=== PATIENT | female | born 1955 | race Caucasian/White ===

== ENCOUNTER → 2017-12-23 01:00 | Outpatient (CLI) | payer OTHER, SELFPAY ==
--- NOTE | 2017-12-23 12:27 | DI.REPORT_ITS ---
SYMPTOMS/DIAGNOSIS: SCREENING, Z12.31 MAMMOGRAM: Mammograms were interpreted according to the usual protocol including computer analysis with CAD system, tomosynthesis and C view imaging. The breasts are of moderate density with fairly symmetrical distribution of fibroglandular tissue. No dominant mass or clumped microcalcification is identified in either breast. Current examination is compared with the previous examinations including July 2015 and there has been no gross interval change in appearance in comparison with the previous studies. CONCLUSION: No specific evidence of malignancy at this time. Routine screening examinations are suggested at yearly intervals due to the family history of breast carcinoma. Category 1, breast density category B. MQSA ASSESSMENT OF FINDINGS: Negative. Category 1. Patient will receive a letter notifying them of these results. BI-RADS category B. There are scattered areas of fibroglandular density.
== END ==
PROVIDERS: PCP Family Medicine; Visit Provider Family Medicine
DX: Z12.31 Encounter for screening mammogram for malignant neoplasm of breast (principal); Z80.3 Family history of malignant neoplasm of breast
CPT/HCPCS: 77063; 77067

== ENCOUNTER 2019-01-12 17:43 | Outpatient (REF) | payer OTHER, SELFPAY ==
--- NOTE | 2019-01-12 11:00 | PAPFT_PTH ---
PATIENT: Susana Parnell LOC: [facility] U#:[id number] AGE/SX: 63/F ROOM: RE01/12/[address]: Melissa Benites MD, DC : 1955 BED: DIS: 01/12/2019 SPEC #: [id number] RECD: 01/13/19 13:06 STATUS: STAN REDario #: [id number] BRYAN: 01/12/19 11:[address]: Melissa Benites DEPT: [facility] Cytology RECD BY: Norma Hicks Tissues: 1 - CX/ENDOCX FOR PAP SMEARS Procedures: PAP THIN PREP/UVM Screening HPV DNA PROBE Comments: [id number]
== END 2019-01-12 18:03 ==
LOC: LBN 17:43
PROVIDERS: PCP Family Medicine; Visit Provider Family Medicine
DX: Z12.4 Encounter for screening for malignant neoplasm of cervix (principal); Z11.51 Encounter for screening for human papillomavirus (HPV)
CPT/HCPCS: 88142; 87624

== ENCOUNTER 2019-02-03 01:22 | Outpatient (CLI) | payer OTHER, SELFPAY ==
--- NOTE | 2019-02-03 12:52 | DI.MAMMO_ITS ---
EXAM: MG MAMMO SCREENING CLINICAL HISTORY: screening, Z12.39. TECHNIQUE: Mammograms were interpreted according to the usual protocol including computer analysis w [employer] system, tomosynthesis and C-view imaging. COMPARISON: December 2017 FINDINGS: The breasts are of moderate density with fairly symmetrical distribution of fibroglandular tissue. N o dominant mass or clumped microcalcification is identified in either breast. Current examination is compared with previous examinations including December 2017 and there has been no gross interval suarez e in appearance in comparison with the previous studies. IMPRESSION: No specific evidence of malignancy at this time. Routine screening examinations suggested at yearly i ntervals due to the family history of breast carcinoma category 1, breast density category B. BI-RADS Cat 1 - Negative Breast Density - Category B - Scattered areas of fibroglandular density
== END 2019-02-03 01:42 ==
PROVIDERS: PCP Family Medicine; Visit Provider Family Medicine
DX: Z12.31 Encounter for screening mammogram for malignant neoplasm of breast (principal); Z80.3 Family history of malignant neoplasm of breast
CPT/HCPCS: 77063; 77067

== ENCOUNTER 2019-03-16 06:19 | Day surgery (SDC) | payer OTHER, SELFPAY ==
[2019-03-16 06:33] VITALS: BP 129/80; PULSE 80; RESP 17; TEMP 36.2; O2SAT 99
[2019-03-16] MEDS: Lactated Ringers 1,000 ML 80 ML IV (07:06)
--- NOTE | 2019-03-16 07:24 | W.PM.HP.N ---
Date of service: 03/16/19 Time of Service: 07:24 Assessment and Plan Assessment and plan (1) Colon cancer screening: Status: Acute Assessment and plan: Informed consent is obtained for the procedural (explained in simple layman's terms that the pt and/or family could understand) explaining risks vs benefits and alternatives to the procedure and consequences if we do not do the procedure and need/rational for the procedure. Risks include but are not limited to:bleeding, infection, perforation of esophagus, stomach, colon, small intestines, bronchus or trachea, or PTX. This would necessitate emergency surgery to repair the damage w/ possible ostomy; and other associated complications w/ the required surgery. Also complications of anesthesia including aspiration,AR/CVA/. History of Present Illness Consults Consult date: 03/16/19 Narrative: pt here is for CRC screening. last ce was 2007 and show divertic. P GMa had crc. no problems w/ bowels- wt loss/changes/bleeding/pain. Review of Systems All systems reviewed & are unremarkable except as noted in HPI and below PFSH Surgical History GANGLION CYST REMOVAL (07/18/14) DR. HOLBROOK Hx of colonoscopy (Chronic) Ligation of fallopian tube OVARIAN SURGERY (~2007) 2007 paratubal cyst R ovary with serous cystadenoma L BSO Tonsillectomy (~1978) Family History Mother Essential hypertension Heart disease Hyperlipidemia Breast cancer Father Heart disease CAROTID AA; CABG Hyperlipidemia Prostate cancer Cancer of spine Hypertension Sister Diabetes Breast cancer Brother Hyperlipidemia Maternal Grandfather , age 71 Heart disease Stroke Paternal Grandfather , age 84 Heart disease Hyperlipidemia Stroke Maternal Grandmother , age 61 Colon cancer Paternal Grandmother , age 73 Stroke Brother Hyperlipidemia Son Hypertension Son Substance abuse Son Depression Substance abuse Social History Smoking/Tobacco Use Status: Never Alcohol Intake: current Alcohol Intake frequency: 0-2 drinks per day Alcohol type: wine Drug use: Never Substance use type: does not use Caregiver/Support person: No Household members: spouse Housing: house Communication Needs: None Do you need help understanding health information?: Never Pets and animals: Yes Pets and animals: dog(s) Sexually active: Yes Do you think of yourself as: straight/heterosexual Current gender identity: female What is your relationship status?: How often do you talk on the phone with friends or family?: three or more times per week How often do you get together with friends or relatives?: once per week How often do you attend religious or mandaen services?: decline to answer Do you belong to any clubs or organized social groups?: no Panel score (0-1 are the most socially isolated patients): 2 What type of physical activity do you participate in: walking Duration: 30-45 minutes/day Frequency: 3-4 times per week Gladis/Orthodox: Anglican Special gladis needs: No Seatbelt use: always Helmet use: Yes Helmet use: always Drive intox or ride w/intox straight truck driver: No Do you feel safe at home: Yes Do you feel safe in your relationship?: Yes Meds Home Medications and Allergies Home Medications Medication Instructions Recorded Confirmed Type ibuprofen [Motrin Ib] 2 tab PO DAILY PRN 09/01/12 03/16/19 History cholecalciferol (vitamin D3) 2,000 unit PO DAILY 03/31/17 03/16/19 History [Vitamin D3] estradiol 10 mcg vaginal tablet 10 mcg VG 2X/WEEK #24 tab-cap 01/12/19 03/16/19 Rx bimatoprost 0.01 % eye drops 1 drp OP DAILY 02/09/19 03/16/19 History timolol 0.25 % eye drops 1 drp OP DAILY 02/09/19 03/16/19 History Allergies Allergy/AdvReac Type Severity Reaction Status Date / Time Iodinated Contrast Media Allergy Intermediate Unverified 03/14/19 13:21 [Iodinated Contrast- Oral and IV Dye] Exam Const General: cooperative, healthy appearing, comfortable, no acute distress, well developed and well groomed Nutritional Appearance: average body habitus and well nourished Orientation: alert, awake and oriented x3 HENMT Head: normal to inspection, normocephalic and atraumatic Ears: hearing grossly normal bilaterally and external ears normal General nose exam: external nose normal Face and sinus: normal facial exam and sinuses nontender Mouth: oral mucosae normal, lip normal, tongue normal and moist mucous membranes Teeth and gingiva: dentition normal Eyes General: appearance normal, both eyes and all related structures Conjunctivae: conjunctivae normal Sclera: sclerae normal Pupils: PERRL Neck Neck: normal visual inspection and full ROM Chest Chest: normal inspection of the chest Resp Effort & Inspection: normal respiratory effort, able to speak in complete sentences, no cough, no nasal flaring, not tachypneic and no use of accessory muscles Auscultation: clear to auscultation bilaterally, no rales, no rhonchi and no wheezes Cardio Jugular venous pressure: no JVD Rate: regular rate Rhythm: regular rhythm GI Inspection: normal to inspection, no edema and non-distended Palpation: soft, no masses, nontender and No ascites Auscultation: normal bowel sounds Skin General skin exam: no rashes or lesions noted Trauma: no lacerations or abrasions Neuro General: alert, oriented x3, oriented, gait normal, moves all extremities, no focal motor deficits and CN's II-XI intact bilaterally Cognition: normal cognition Speech: speech normal Gait: normal gait Motor: muscle tone normal throughout Extrem General: normal to inspection, full ROM and no clubbing, cyanosis or edema Psych Appearance: grossly normal and well kempt Mental Status: mental status grossly normal Speech and Movement: speech and movement normal Affect: normal affect Results Last Vital Signs Temp 36.2 C L 03/16/19 06:33 Pulse 80 03/16/19 06:33 Resp 17 03/16/19 06:33 BP 129/80 03/16/19 06:33 Pulse Ox 99 03/16/19 06:33
--- NOTE | 2019-03-16 07:48 | BOWEL_PTH ---
PATIENT: Susana Parnell LOC: [facility] U#:[id number] AGE/SX: 63/F ROOM: RE03/16/[address]: Vida House : 1955 BED: DIS: 03/16/2019 SPEC #: [id number] RECD: 03/16/19 12:18 STATUS: STAN REQ #: [id number] BRYAN: 03/16/19 07:[address]: Vida House DEPT: Surgical Specimen RECD BY: Norma Hicks ENTERED: 03/16/19 12:19 SP TYPE: Bowel OTHR DR: Melissa Benites MD, DC Tissues: 1 - BIOPSY BOWEL Procedures: GROSS AND MICRO LEVEL 4 Comments: [id number]
--- NOTE | 2019-03-16 07:54 | W.COLOREPORT ---
Date of service: 03/16/19 Time of Service: 07:54 Colonoscopy Report Date of procedure: 03/16/19 Pre-op diagnosis general: 2nd degree relative w/ CRC Post-op diagnosis procedure note: other (x2 very small polyps at 20cm. beginnings of divertic) Procedure: CE Surgeon: Vida House Anesthesia proc note operative: GETA Estimated blood loss (mL): 1 Pathology: other Complications: None Disposition: same day Prep: Miralax/Dulcolax Retraction Time: 10 mins Procedure Description: After informed consent was obtained the patient was taken to the procedure room and placed in a left decubitous position. Monitors were applied and a time out was done. The patients name, date of , procedure, allergies to medications and metal in their body was reviewed. The patient was then sedated. Once sedated and comfortable a rectal exam was done. External exam was gradeII internal and external Internal exam revealed a normal sphincter tone and no palpable masses. The scope was then introduced and retrofelexed. Grade II internal hemorrhoids were identified. The scope was then advanced to the cecum w/out difficulty. The TI and appendiceal orifice were identified. The prep was good. The scope was then slowly retracted over 10 minutes back into the rectum. Polyps were removed at x2- very small at 20cc/sigmoid. all specimen was retrieved and no bleeding was noted. She has the very beginnings of diverticula noted. The scope was removed and the patient was woken up and taken back to Same day surgery in stable condition. The patient tolerated the procedure well and there were no immediate complications. Follow up: The patient should follow up in 10 years unless they develop changes in bowel habits or other new gastrointestinal complaints.
--- NOTE | 2019-03-16 07:57 | W.PM.DSUDISC ---
Discharge Plan Disposition Patient Disposition: HOME Condition: Good Discharge Details Reason For Visit: colon scope Attending Provider: Vida House Primary Care Provider: Melissa Benites Home Meds and New Rx's Prescriptions: Continued estradiol [Vagifem] 10 mcg tablet 10 mcg VG 2X/WEEK Qty: 24 RF: 4 timolol 0.25 % drops 1 drp OP DAILY RF: 0 Lumigan 0.01 % drops 1 drp OP DAILY RF: 0 ibuprofen [Motrin IB] 200 MG tablet 2 tab PO DAILY PRNRF: 0 cholecalciferol (vitamin D3) [Vitamin D3] 2,000 UNIT capsule 2,000 unit PO DAILY RF: 0 Discharge Instructions Instructions: Diverticulosis (GEN) Additional Instructions: Findings:minute divertic x2 very small polyps in rectal/sigmoid Follow up: will send a letter in 2-3 wks w/ results and when to repeat the scope (most likely in 10 yrs) Please call if you develop: fevers >101.5 Nausea or Vomiting Abdominal pain that is not transient DAY SURGERY UNIT POST COLONOSCOPY INSTRUCTIONS 1. Because there will be medication in your system for the next 24 hours, you may feel a little sleepy. Your coordination will be affected. Therefore: a. Do not drive or operate dangerous equipment for 24 hours. b. Do not drink alcohol beverages for 24 hours (not even beer). c. Plan to go home and rest for the day. 2. Generally there are no restrictions on your activity after a day or so has gone by, but you may feel a bit fatigued for a few days. 3 After you arrive home you may have a light meal and return to a normal diet as you can tolerate it without feeling sick to your stomach. 4. After surgery, you may feel pain or discomfort. This should be only transient, but if it persists please contact your doctor. 5. If there are any questions regarding the findings of your procedure, please feel free to contact your doctor. 6. If you are unable to contact your doctor with a problem, contact the hospital at [phone]. 7. Continue all your regular medications unless directed otherwise. I understand the above instructions and have no questions. Signature of Patient or Responsible Adult Escort Date/Time Name of Responsible Adult Escort Signature of Nurse Date/Time Discharge Orders Discharge Orders: Discharge Order (Routine); Ordered 03/16/19 Ordered By: Vida House DS: Diagnosis Discharge Diagnosis (1) Colon cancer screening: Status: Acute
[2019-03-16 08:32] VITALS: BP 114/71; PULSE 68; RESP 16; TEMP 36.3; O2SAT 99
== END 2019-03-16 08:55 | disposition home or self-care (01) ==
PROVIDERS: PCP Family Medicine; Visit Provider Surgery
PROC: 0DJD8ZZ Inspection of Lower Intestinal Tract, Via Natural or Artificial Opening Endoscopic (ICD-10-PCS; CPT 45378; principal; 2019-03-16 07:30)
DX: Z12.11 Encounter for screening for malignant neoplasm of colon (principal); Z80.0 Family history of malignant neoplasm of digestive organs; K63.5 Polyp of colon; K64.1 Second degree hemorrhoids; K57.30 Diverticulosis of large intestine without perforation or abscess without bleeding
CPT/HCPCS: 45380; 88305; NC; J2250; J3010

== ENCOUNTER 2020-05-02 11:02 | Outpatient (CLI) | payer OTHER, MEDICARE, SELFPAY ==
--- NOTE | 2020-05-02 09:00 | DI.RAD_ITS ---
EXAM: XR WRIST RT COMPLETE CLINICAL HISTORY: cyst vs calcium vs bone. TECHNIQUE: 2D digital imaging was performed. COMPARISON: No exams were available for comparison FINDINGS: BONES: No acute fracture is present. No bony destructive lesion is seen. There is a well corticated o sseous density at the tip of the ulnar styloid process which appears chronic. JOINTS: The carpal bones are normally aligned. Mild degenerative changes are seen at the 1st CMC join t with hypertrophic spurring present. SOFT TISSUE: Focal soft tissue swelling is seen medial to the ulnar styloid process. No soft tissue calcification is seen. The underlying bone is intact. IMPRESSION: Focal soft tissue swelling medial to the ulnar styloid process. No involvement of the underlying bon e or soft tissue calcification is noted. If clinically indicated, ultrasound or MRI may be considere d for further evaluation. DATA REPOSITORY: RADIATION DOSE DELIVERED:
== END 2020-05-02 11:22 ==
PROVIDERS: PCP Family Medicine; Visit Provider Physician Assistant Surgical
DX: M79.89 Other specified soft tissue disorders (principal); M18.11 Unilateral primary osteoarthritis of first carpometacarpal joint, right hand
CPT/HCPCS: 73110

== ENCOUNTER 2020-05-09 02:08 | Outpatient (CLI) | payer OTHER, SELFPAY ==
--- NOTE | 2020-05-09 08:41 | DI.MAMMO_ITS ---
EXAM: MG MAMMO SCREENING CLINICAL HISTORY: SCREENING, Z12.39. TECHNIQUE: Bilateral full field digital CC and MLO mammographic images were obtained with 3D tomosyn thesis and utilizing computer aided detection (CAD). COMPARISON: Prior mammograms dating back to 2010, the most recent being January 2019. Significant family history of. Both sister diagnosed at age 43 as well as her mother at age 70. FINDINGS: There are no spiculated masses nor malignant appearing microcalcification groups. There is no signif icant architectural distortion nor skin thickening-retraction. IMPRESSION: No radiographic evidence of malignancy. BI-RADS Category 1 - Negative Breast Density - Category B - Scattered areas of fibroglandular density Breast density Category C or D implies that the patient has dense breast tissue. Dense breast tissue can make it harder to find cancer on a mammogram. Dense breast tissue is also associated with an incr eased risk of breast cancer. This information about the result of the mammogram report was provided to the patient to raise their awareness. Use this report when you speak with the patient about their risks for breast cancer, which includes their family history. At that time, you may recommend additional screening tests (Ultrasoun d or MRI) as these tests may add significant information. A negative radiographic report should not delay biopsy if a dominant or clinically suspicious mass is present. Up to ten percent of cancers are not identified on mammography. A negative report may reinforce clinical impression. Adenosis and dense breasts may obscure an underlying neoplasm. False positive reports average 6 to 10%. Patient will receive a letter notifying them of these results.
== END 2020-05-09 02:28 ==
PROVIDERS: PCP Family Medicine; Visit Provider Family Medicine
DX: Z12.31 Encounter for screening mammogram for malignant neoplasm of breast (principal)
CPT/HCPCS: 77063; 77067

== ENCOUNTER 2020-05-09 02:55 | Outpatient (CLI) | payer OTHER, MEDICARE, SELFPAY ==
[2020-05-09 08:14] LABS: HCT 40.9 % (36.0-46.0); HGB 13.5 g/dL (11.2-15.7); MCH 30.9 pg (27.0-33.0); MCV 93.6 fL (80-95); MPV 8.7 fL (8.0-11.0); Platelet Count 307 10^3/uL (130-400); RBC 4.37 10^6/uL (3.93-5.22); RDW 12.3 % (11.7-14.6); RDW-SD 42.7 fL; WBC 6.46 10^3/uL (4.4-10.8)
[2020-05-09 09:12] LABS: ALT 49 U/L (14-59); AST 25 U/L (15-37); Alkaline Phosphatase 79 U/L (46-116); Anion Gap 6.4 mmol/L (3-11); BUN 15 mg/dL (7-18); Bilirubin, Total 0.6 mg/dL (0.2-1.0); CO2 28.6 mmol/L (21.0-32.0); CREATININE 0.84 mg/dL (0.55-1.02); Calcium 9.2 mg/dL (8.5-10.1); Calculated LDL 169 mg/dL (<100); Chloride 105 mmol/L (98-107); Cholesterol 271 mg/dL (<200); Glucose 99 mg/dL (74-106); HDL Cholesterol 60 mg/dL (40-60); Potassium 4.3 mmol/L (3.5-5.1); Sodium 140 mmol/L (136-145); TSH (W/Ref FT4) 2.05 uIU/mL (0.36-3.74); Total Protein 7.3 g/dL (6.4-8.2); Triglyceride 212 mg/dL (<150)
== END 2020-05-09 03:15 ==
PROVIDERS: PCP Family Medicine; Visit Provider Family Medicine
DX: Z00.00 Encounter for general adult medical examination without abnormal findings (principal); Z12.31 Encounter for screening mammogram for malignant neoplasm of breast
CPT/HCPCS: 36415; 77063; 77067; 80053; 80061; 85027; 84443

== ENCOUNTER 2020-05-17 03:41 | Outpatient (CLI) | payer OTHER, SELFPAY ==
[2020-05-18 15:46] LABS: COVID-19 RT-PCR Result NEGATIVE (Negative)
== END 2020-05-17 04:01 ==
PROVIDERS: PCP Family Medicine; Visit Provider Student in an Organized Health Care Education/Training Program
DX: Z11.52 Encounter for screening for COVID-19 (principal); Z01.818 Encounter for other preprocedural examination
CPT/HCPCS: U0003

== ENCOUNTER 2020-05-22 08:55 | Day surgery (SDC) | payer OTHER, SELFPAY ==
[2020-05-22 09:05] VITALS: BP 116/68; PULSE 88; RESP 17; TEMP 36.8; O2SAT 99
[2020-05-22] MEDS: Lactated Ringers 1,000 ML 80 ML IV (09:40)
--- NOTE | 2020-05-22 09:46 | PDOC.DSDIS_ITS ---
Documented by User: Vida Wall 05/22/20 10:01 Discharge Plan Disposition Patient Disposition: HOME Condition: Good Discharge Details Reason For Visit: Right wrist ganglion cyst Attending Provider: Dakota Alberto Primary Care Provider: Melissa Benites Home Meds and New Rx's Prescriptions: New hydrocodone-acetaminophen 5-325 mg tablet 1 tab PO Q6H PRN (Reason: severe pain) Qty: 4 RF: 0 acetaminophen 500 mg tablet 500 mg PO Q6H PRN (Reason: pain) Qty: 60 RF: 2 ibuprofen 600 mg tablet 600 mg PO TID PRN (Reason: pain) Qty: 60 RF: 0 Continued loratadine [Allergy Relief (loratadine)] 10 mg tablet 10 mg PO DAILY RF: 0 fluticasone propionate [Allergy Relief (fluticasone)] 50 mcg/actuation spray,suspension 1 spray intranasal DAILY PRNRF: 0 estradiol [Vagifem] 10 mcg tablet 10 mcg VG .3 times weekly Qty: 36 RF: 4 timolol 0.25 % drops 1 drp OP DAILY RF: 0 Lumigan 0.01 % drops 1 drp OP DAILY RF: 0 cholecalciferol (vitamin D3) [Vitamin D3] 2,000 UNIT capsule 2,000 unit PO DAILY RF: 0 Discontinued ibuprofen [Motrin IB] 200 MG tablet 2 tab PO DAILY PRNRF: 0 Discharge Instructions Additional Instructions: Ganglion Cyst Excision Discharge Instructions Activity: You should keep the hand elevated as much as possible for the first few days. You may use the other fingers as tolerated but avoid trying to do too much too soon. You may perform light activities with the dressing in place. Dressing/Cast: Your dressing should stay in place for the next 72 hours. After that time you may remove dressings and apply a bandaid over the incision. Medications: - You should take Tylenol and Ibuprofen for baseline pain control. - You have Hydrocodone for breakthrough pain. - You may apply ice over the wrist as needed. Follow-up: 7-10 days Referrals: Dakota Alberto MD [ [facility] STAFF PHYSICIAN] - Activity:: Elevate Remove Dressings/Wound Care:: 72 hours Shower/Bathe:: 72 hours Diet:: As Tolerated Discharge Orders Discharge Orders: Discharge Order (Routine); Ordered 05/22/20 Ordered By: Vida Wall DS: Diagnosis Discharge Diagnosis (1) Ganglion cyst of dorsum of right wrist: Status: Acute Documented by User: Dakota Alberto MD 05/22/20 10:48 Discharge Plan Disposition Patient Disposition: HOME Condition: Good Discharge Details Reason For Visit: Right wrist ganglion cyst Attending Provider: Dakota Alberto Primary Care Provider: Melissa Benites Home Meds and New Rx's Prescriptions: New hydrocodone-acetaminophen 5-325 mg tablet 1 tab PO Q6H PRN (Reason: severe pain) Qty: 4 RF: 0 acetaminophen 500 mg tablet 500 mg PO Q6H PRN (Reason: pain) Qty: 60 RF: 2 ibuprofen 600 mg tablet 600 mg PO TID PRN (Reason: pain) Qty: 60 RF: 0 Continued loratadine [Allergy Relief (loratadine)] 10 mg tablet 10 mg PO DAILY RF: 0 fluticasone propionate [Allergy Relief (fluticasone)] 50 mcg/actuation spray,suspension 1 spray intranasal DAILY PRNRF: 0 estradiol [Vagifem] 10 mcg tablet 10 mcg VG .3 times weekly Qty: 36 RF: 4 timolol 0.25 % drops 1 drp OP DAILY RF: 0 Lumigan 0.01 % drops 1 drp OP DAILY RF: 0 cholecalciferol (vitamin D3) [Vitamin D3] 2,000 UNIT capsule 2,000 unit PO DAILY RF: 0 Discontinued ibuprofen [Motrin IB] 200 MG tablet 2 tab PO DAILY PRNRF: 0 Discharge Instructions Additional Instructions: Ganglion Cyst Excision Discharge Instructions Activity: You should keep the hand elevated as much as possible for the first few days. You may use the other fingers as tolerated but avoid trying to do too much too soon. You may perform light activities with the dressing in place. Dressing/Cast: Your dressing should stay in place for the next 72 hours. After that time you may remove dressings and apply a bandaid over the incision. Medications: - You should take Tylenol and Ibuprofen for baseline pain control. - You have Hydrocodone for breakthrough pain. - You may apply ice over the wrist as needed. Follow-up: 7-10 days Referrals: Dakota Alberto MD [ [facility] STAFF PHYSICIAN] - Activity:: Elevate Remove Dressings/Wound Care:: 72 hours Shower/Bathe:: 72 hours Diet:: As Tolerated Discharge Orders Discharge Orders: Discharge Order (Routine); Ordered 05/22/20 Ordered By: Vida Wall
[2020-05-22] MEDS: ceFAZolin 2 GM/50 ML BAG IVPB (13:01)
[2020-05-22] MEDS: Sodium Bicarbonate 50 MEQ/50 ML VIAL (13:39)
[2020-05-22 14:08] VITALS: BP 131/65; PULSE 73; RESP 17; TEMP 36.3; O2SAT 99
--- NOTE | 2020-05-22 18:22 | W.PM.OP ---
Date of service: 05/22/20 Time of Service: 14:22 Operative Note Operative Note DATE OF PROCEDURE: 05/22/20 PRE-OP DIAGNOSIS: Right Dorsal Wrist Ganglion Cyst POST-OP DIAGNOSIS: same PROCEDURE: Excision of dorsal wrist ganglion cyst -right wrist SURGEON: Dakota Alberto ANESTHESIA: MAC ESTIMATED BLOOD LOSS: 0 PATHOLOGY: none sent TOURNIQUET TIME: 0 COMPLICATIONS: None Patient was transported to: PACU Patient's condition: stable Indications: Susana is a 64-year-old female who I have seen for a dorsal wrist ganglion cyst. It has continued to be bothersome despite some conservative options. Its size and interference with activities continues to cause problems. Therefore, I offered excision of the dorsal wrist cyst. I discussed the risks to include bleeding, infection, pain, stiffness, damage to nerve and vessels, recurrence. Despite these risks, [she] elects to proceed. Findings: There is a multilobular ganglion cyst arising from the extensor retinaculum in the underlying extensor tendons. Procedure Description: Susana was greeted in the preoperative holding area. Identity was confirmed and the correct site was identified and marked. Consent was reviewed the patient and signed. History and physical was updated. The patient to take not to the operating room placed in supine position. All bony prominences were well-padded. A nonsterile tourniquet was placed high up onto the right arm. The arms and prepped with ChloraPrep and draped in a standard fashion. The surgical site was marked on the skin and injected with 1% lidocaine with epinephrine buffered with sodium bicarbonate. The tourniquet was not used for the case the skin was incised sharply. Deeper dissection was carried out with tenotomy scissors and careful attention to vascular and nerve branches in this area. The mass was identified and protected with dissection carried around. Once was fully identified it was deflated and the cyst stalk was followed down. The cyst was multilobular and seemed to have a stalk going into the extensor retinaculum on the ulnar aspect of the dorsal wrist. Did not seem to go down to the DRUJ but rather to the extensor tendons through the defect in the extensor retinaculum. The cyst structure was resected and its origin from the retinaculum was opened with tenotomy scissors and rongeur. The wound was then thoroughly irrigated. There is no major bleeding. The wound was dry. The deep layer was reapproximated with a 3-0 Vicryl. The skin was closed with a running 4-0 Monocryl followed by skin glue, gauze, and Reg wrap. At the end the case all counts were correct. The patient was awakened from anesthesia and taken to the same-day surgery area in stable condition. There were no noted complications.
== END 2020-05-22 14:26 | disposition home or self-care (01) ==
PROVIDERS: PCP Family Medicine; Visit Provider Student in an Organized Health Care Education/Training Program
PROC: (CPT 25111; principal; 2020-05-22 12:45)
DX: M67.431 Ganglion, right wrist (principal)
CPT/HCPCS: 25111; J0690; J2001

== ENCOUNTER 2020-07-08 09:34 | Outpatient (CLI) | payer MEDICARE, SELFPAY ==
[2020-07-09 14:59] LABS: COVID-19 RT-PCR UVMMC Result Negative (Negative)
== END 2020-07-08 09:35 | disposition home or self-care (01) ==
LOC: LBO 09:34
PROVIDERS: PCP Family Medicine; Visit Provider Family Medicine
DX: Z20.822 Contact with and (suspected) exposure to COVID-19 (principal)
CPT/HCPCS: U0003; U0005

== ENCOUNTER 2021-02-19 03:35 | Outpatient (CLI) | payer MEDICARE, SELFPAY ==
[2021-02-20 10:07] LABS: COVID-19 RT-PCR UVMMC Result Negative (Negative)
== END 2021-02-19 03:36 | disposition home or self-care (01) ==
LOC: LBO 03:36
PROVIDERS: PCP Family Medicine; Visit Provider Nurse Practitioner Family
DX: Z20.822 Contact with and (suspected) exposure to COVID-19 (principal)
CPT/HCPCS: U0003; U0005

== ENCOUNTER 2021-06-16 02:10 | Outpatient (CLI) | payer MEDICARE, SELFPAY ==
--- NOTE | 2021-06-16 10:45 | DI.MAMMO_ITS ---
Exam(s) MAMMO SCREENING EXAM: MAMMO SCREENING CLINICAL HISTORY: screening,Z12.39. TECHNIQUE: Bilateral full field digital CC and MLO mammographic images were obtained with 3D tomosyn thesis and utilizing computer aided detection (CAD). COMPARISON: Prior mammograms were reviewed, the most recent being April 2020. FINDINGS: There has been no significant change in the appearance and distribution of fibroglandular tissue. There are no CAD designations. There are no new spiculated masses nor malignant appearing microcalcification groups. There is no significant architectural distortion nor skin thickening-retraction. IMPRESSION: No radiographic evidence of malignancy. BI-RADS Category 1 - Negative Breast Density - Category B - Scattered areas of fibroglandular density Breast density Category C or D implies that the patient has dense breast tissue. Dense breast tissue can make it harder to find cancer on a mammogram. Dense breast tissue is also associated with an incr eased risk of breast cancer. This information about the result of the mammogram report was provided to the patient to raise their awareness. Use this report when you speak with the patient about their risks for breast cancer, which includes their family history. At that time, you may recommend additional screening tests (Ultrasoun d or MRI) as these tests may add significant information. A negative radiographic report should not delay biopsy if a dominant or clinically suspicious mass is present. Up to ten percent of cancers are not identified on mammography. A negative report may reinforce clinical impression. Adenosis and dense breasts may obscure an underlying neoplasm. False positive reports average 6 to 10%. Patient will receive a letter notifying them of these results.
== END 2021-06-16 02:30 ==
PROVIDERS: PCP Family Medicine; Visit Provider Family Medicine
DX: Z12.31 Encounter for screening mammogram for malignant neoplasm of breast (principal)
CPT/HCPCS: 77063; 77067

== ENCOUNTER → 2022-04-10 01:23 | Outpatient (CLI) | payer MEDICARE, SELFPAY ==
--- NOTE | 2022-04-10 07:15 | DI.DEXA_ITS ---
Exam(s) XR DEXA BONE DENSITY W/WO [facility]AUGHN EXAM: XR DEXA BONE DENSITY W/WO DEVAUGHN CLINICAL HISTORY: osteoporosis,M81.0 TECHNIQUE: [facility] C densitometer analysis of left hip, lumbar spine and left forearm. COMPARISON: DX DEVAUGHN from 06/07/2008 FINDINGS: Lateral view of the thoracic and lumbar spine shows no evidence of compression fractures. Bone mineral density measurements of the lumbar spine correspond to a total T-score of 0.5, in the n ormal range. Bone mineral density measurements of the left hip correspond to a total T-score of -0.6. The femora l neck T-score is -1.1, in the mildly osteopenic range. There has been no significant decrease from prior.. The left forearm bone mineral density measurements correspond to a T-score of the distal 3rd of -2.1 , in the osteopenic range. The forearm was not analyzed in 2008.. IMPRESSION: Normal bone mineral density of the lumbar spine. Stable mild osteopenia of the left hip. Osteopenia of the left forearm.
== END ==
PROVIDERS: PCP Family Medicine; Visit Provider Family Medicine
DX: M85.89 Other specified disorders of bone density and structure, multiple sites (principal); Z13.820 Encounter for screening for osteoporosis
CPT/HCPCS: 77080

== ENCOUNTER 2022-04-16 01:33 | Outpatient (CLI) | payer MEDICARE, SELFPAY ==
[2022-04-16 08:16] LABS: HCT 40.3 % (36.0-46.0); HGB 13.5 g/dL (11.2-15.7); MCH 31.1 pg (27.0-33.0); MCHC 33.5 % (32.0-36.0); MCV 93 fL (80-95); MPV 8.8 fL (8.0-11.0); Platelet Count 285 10^3/uL (130-400); RBC 4.34 10^6/uL (3.93-5.22); RDW 12.1 % (11.7-14.6); RDW-SD 41.5 fL; WBC 6.81 10^3/uL (4.4-10.8)
[2022-04-16 09:12] LABS: ALT 36 U/L (14-59); AST 18 U/L (15-37); Albumin 3.9 g/dL (3.4-5.0); Alkaline Phosphatase 92 U/L (46-116); Anion Gap 7.4 mmol/L (3-11); BUN 16 mg/dL (7-18); Bilirubin, Total 0.5 mg/dL (0.2-1.0); CO2 28.6 mmol/L (21.0-32.0); CREATININE 0.8 mg/dL (0.55-1.02); Calcium 9.3 mg/dL (8.5-10.1); Calculated LDL 166 mg/dL (<100); Chloride 104 mmol/L (98-107); Cholesterol 269 mg/dL (<200); Estimated GFR 80.21 (mL/min/1.73m2); Glucose 105 mg/dL (74-106); HDL Cholesterol 57 mg/dL (40-60); Sodium 140 mmol/L (136-145); TSH (W/Ref FT4) 1.52 uIU/mL (0.36-3.74); Total Protein 7.7 g/dL (6.4-8.2); Triglyceride 232 mg/dL (<150)
== END 2022-04-16 01:34 | disposition home or self-care (01) ==
PROVIDERS: PCP Family Medicine; Visit Provider Family Medicine
DX: K21.9 Gastro-esophageal reflux disease without esophagitis (principal); E78.5 Hyperlipidemia, unspecified
CPT/HCPCS: 36415; 80053; 80061; 85027; 84443

== ENCOUNTER 2022-07-30 17:31 | Outpatient (REF) | payer MEDICARE, SELFPAY | END 2022-07-30 17:32 | disposition home or self-care (01) | LOC: LBN 17:31 | PROVIDERS: PCP Family Medicine; Visit Provider Nurse Practitioner Family | DX: L03.039 Cellulitis of unspecified toe (principal); Z23 Encounter for immunization | CPT/HCPCS: 87077; 87070; 87186; 87205 ==

== ENCOUNTER → 2023-05-05 00:43 | Outpatient (CLI) | payer MEDICARE, SELFPAY ==
--- NOTE | 2023-05-05 08:45 | DI.MAMMO_ITS ---
Exam(s) MAMMO SCREENING EXAM: MAMMO SCREENING CLINICAL HISTORY: screening,z12.39. TECHNIQUE: Bilateral full field digital CC and MLO mammographic images were obtained with 3D tomosyn thesis and utilizing computer aided detection (CAD). COMPARISON: Prior mammograms were reviewed. FINDINGS: There has been no significant change in the appearance and distribution of the fibroglandular tissue. No CAD designations. There are no new spiculated masses nor malignant appearing microcalcification groups. There is no significant architectural distortion nor skin thickening-retraction. IMPRESSION: No radiographic evidence of malignancy. BI-RADS Category 1 - Negative Breast Density - Category B - Scattered areas of fibroglandular density Breast density Category C or D implies that the patient has dense breast tissue. Dense breast tissue can make it harder to find cancer on a mammogram. Dense breast tissue is also associated with an incr eased risk of breast cancer. This information about the result of the mammogram report was provided to the patient to raise their awareness. Use this report when you speak with the patient about their risks for breast cancer, which includes their family history. At that time, you may recommend additional screening tests (Ultrasoun d or MRI) as these tests may add significant information. A negative radiographic report should not delay biopsy if a dominant or clinically suspicious mass is present. Up to ten percent of cancers are not identified on mammography. A negative report may reinforce clinical impression. Adenosis and dense breasts may obscure an underlying neoplasm. False positive reports average 6 to 10%. Patient will receive a letter notifying them of these results.
== END ==
PROVIDERS: PCP Family Medicine; Visit Provider Family Medicine
DX: Z12.31 Encounter for screening mammogram for malignant neoplasm of breast (principal)
CPT/HCPCS: 77063; 77067

== ENCOUNTER 2023-08-19 05:35 | Outpatient (CLI) | payer MEDICARE, SELFPAY ==
[2023-08-24 10:59] LABS: Apolipoprotein B, Serum 127 mg/dL (48-124); Beta VLDL Cholesterol Not Detected mg/dL (<15); Beta VLDL Triglycerides Not Detected mg/dL (<15); Cholesterol, Total, CDC 268 mg/dL; Chylomicron Cholesterol Not Detected; Chylomicron Triglycerides Not Detected; HDL Cholesterol, CDC 54 mg/dL (>=50); LDL Cholesterol 167 mg/dL; LDL Triglycerides 74 mg/dL (<=50); Lp(a) Cholesterol <5 mg/dL (<5); LpX Not detected; Triglycerides, CDC 198 mg/dL; VLDL Cholesterol 47 mg/dL (<30); VLDL Triglycerides 95 mg/dL (<120)
== END 2023-08-19 05:36 | disposition home or self-care (01) ==
PROVIDERS: PCP Family Medicine; Visit Provider Family Medicine
DX: E78.5 Hyperlipidemia, unspecified (principal)
CPT/HCPCS: 36415; 80061; 82172; 82664

== ENCOUNTER 2024-01-17 01:54 | Outpatient (CLI) | payer MEDICARE, SELFPAY ==
[2024-01-20 16:57] LABS: Apolipoprotein B, Serum 58 mg/dL (48-124); Beta VLDL Cholesterol Not Detected mg/dL (<15); Beta VLDL Triglycerides Not Detected mg/dL (<15); Cholesterol, Total, CDC 149 mg/dL; Chylomicron Cholesterol Not Detected; Chylomicron Triglycerides Not Detected; HDL Cholesterol, CDC 55 mg/dL (>=50); Interpretation Normal; LDL Cholesterol 67 mg/dL; LDL Triglycerides 35 mg/dL (<=50); Lp(a) Cholesterol <5 mg/dL (<5); LpX Not detected; Triglycerides, CDC 121 mg/dL; VLDL Cholesterol 27 mg/dL (<30); VLDL Triglycerides 62 mg/dL (<120)
== END 2024-01-17 01:55 | disposition home or self-care (01) ==
PROVIDERS: PCP Family Medicine; Visit Provider Family Medicine
DX: E78.00 Pure hypercholesterolemia, unspecified (principal)
CPT/HCPCS: 36415; 80061; 82172; 82664

== ENCOUNTER 2024-05-25 00:06 | Outpatient (CLI) | payer MEDICARE, SELFPAY ==
--- NOTE | 2024-05-25 08:15 | ETT_ITS ---
APPROVED REPORT Exam: Exercise Treadmill Patient Location: Out-Patient Room/Bed: Stress Nurse: Estefany Fowler RN Ordering Provider:ABHILASH HARLEY, Contact Number: [phone] BMI: 26.77 Baseline Rhythm: Sinus Rhythm Indications: Chest pain, Medical History Medical History: HLD, GERD Cardiac Medications: Rosuvastatin, timolol, omeprazole Allergies: Iodinated contrast Cardiac Risk Factors: HLD Previous Cardiac Procedures: None Pretest Chest Pain Characteristics: None Exercise History: Indeterminate Physical Disabilities: None Lung Sounds: Clear to auscultation Heart Sounds: Regular Stress Test Details Test: Exercise stress testing was performed using a Mauro protocol. Rest Stress HR Resting HR Supine: 66 bpm Max Heart Rate (APMHR): 150 bpm Resting HR Standin bpm Target HR (85% APMHR): 128 bpm Max HR Achieved: 129 bpm % of APMHR: 86 Recovery HR: 74 bpm HR response to stress: Normal HR response to stress BP Resting BP Supine: 140/68 mmHg Resting BP Standin/78 mmHg Max BP: 162/76 mmHg Recovery BP: 130/68 mmHg BP response to stress: Normal blood pressure response to stress. ECG Resting ECG: Sinus Rhythm Ectopy: None Stress ECG: Sinus Tachycardia ST Change: No significant ST segment changes noted Arrhythmia: None Recovery ECG: Sinus Rhythm Recovery ST Change: No significant ST segment changes noted Recovery Arrhythmia: None Clinical Reason for Termination: Target HR Achieved, Fatigue Stress Symptoms: None Exercise duration: 06 min50 sec Highest Stage Reached: Stage 3: 3.4 mph at 14% grade. Exercise capacity: 8.42 METs Angina Score: None Reed Treadmill Score: 6 Rate Pressure Product: [id number] Stress ECG Conclusion 1. Resting electrocardiogram was normal 2. Patient exercised on the Mauro protocol and completed a workload of 8.42 METS 3. Normal heart rate and blood pressure response to exercise. The patient achieved 86% of maximal pr edicted heart rate for age 4. There was no electrocardiographic evidence of myocardial ischemia 5. There were no significant dysrhythmias Reed Treadmill Score is 6 which is Low risk. Stress Test Summary STAGE Time (mins) Speed (mph) Grade (%) HR BP SpO2 SYMPTOMS METS Supine 66 140/68 96% Standing 70 136/78 1 3 1.7 10 102 160/80 98% 4.5 2 6 2.5 12 117 162/76 98% 7 3 9 3.4 14 129 10 1 min recovery 98 150/80 98% 3 min recovery 76 140/78 98% 6 min recovery 74 130/68 99%
== END 2024-05-25 00:26 ==
LOC: DI 00:06
PROVIDERS: PCP Family Medicine; Visit Provider Internal Medicine Cardiovascular Disease
DX: R07.9 Chest pain, unspecified (principal)
CPT/HCPCS: 93016; 93018; 93017

== ENCOUNTER 2024-06-28 01:48 | Outpatient (CLI) | payer MEDICARE, SELFPAY ==
--- NOTE | 2024-06-28 08:00 | DI.MAMMO_ITS ---
Exam(s) MAMMO SCREENING EXAM: MAMMO SCREENING CLINICAL HISTORY: screening,Z12.39 TECHNIQUE: Bilateral full field digital CC and MLO mammographic images were obtained with 3D tomosyn thesis and utilizing computer aided detection (CAD). COMPARISON: Available for comparison. FINDINGS: Masses/Architectural Distortion: None seen. Microcalcifications: No suspicious pleomorphic-type are seen. Skin Thickening/Nipple Retraction: None. IMPRESSION: 1. No significant interval change with no specific features of malignancy noted. 2. Unless there is more urgent need, screening mammography is recommended, as per [employer] guidelines. BI-RADS Category 1 - Negative Breast Density - Category B - Scattered areas of fibroglandular density Breast density category C or D implies that the patient has dense breast tissue. Dense breast tissue is very common and is not abnormal but dense breast tissue can make it harder to find cancer on a ma mmogram. Also, dense breast tissue may increase their breast cancer risk. This information about the result of the mammogram report was provided to the patient to raise their awareness. Use this report when you speak with the patient about their risks for breast cancer, which includes their family hist ory. At that time, you may recommend for more screening tests (Ultrasound or MRI) as they might be us eful based on their risk. A negative radiographic report should not delay biopsy if a dominant or clinically suspicious mass is present. Up to ten percent of cancers are not identified on mammography. A negative report may reinforce clinical impression. Adenosis and dense breasts may obscure an underlying neoplasm. False positive reports average 6 to 10%. Patient will receive a letter notifying them of these results.
== END 2024-06-28 02:08 ==
LOC: DI 01:49
PROVIDERS: PCP Family Medicine; Visit Provider Family Medicine
DX: Z12.31 Encounter for screening mammogram for malignant neoplasm of breast (principal); R92.323 Mammographic fibroglandular density, bilateral breasts
CPT/HCPCS: 77063; 77067